=== PATIENT | female | born 1930 | race Caucasian/White ===

== ENCOUNTER 2016-05-04 18:49 | Inpatient (IN) | payer MEDICARE, BC ==
[~2016-05-04 18:49] MED LIST: ALENDRONATE SOD70 M2 PO; AMBIEN10 M1 PO; AMBIEN10 MG; ASPIRIN81 M1 PO; AZELASTINE205.5 MCG/; BIOTIN800 MCG; CALCARB 600 W-V1 TAB; CALCIUM 600 +1 EA10 PO; CARBIDOPA/LEVO1 TAB; CENTRUM SILVER1 EAC3 PO; CENTRUM SILVER1 TA; COSOPT EYE DROP10 ML OP; COSOPT EYE DROPS5 ML; DIAZEPAM5 M; DIOVAN160 M1 PO; DORZOLAMIDE; EXTRA STRENGTH500 MG; FOLIC ACID0.4 MG; FOSAMAX70 MG; LEVOTHROID25 MCG; LEVOTHYROXINE25 MC3 PO; MAG 6464 MG; MAGNESIUM250 M3 PO; MAXZIDE 75/50 T1 TAB; MELATONIN3 M4 PO; MUPIROCIN22 G2 TP; NORVASC10 MG; SALINE NASAL SP30 M1; TIMOLOL; TRAMADOL HCL50 M2 PO; TRAMADOL HCL50 MG; TRAVATAN Z5 M1 BOTH EYES; TRAVATAN5 ML; TRIAMTERENE-HC1 EAC1 PO; TYLENOL EXTRA500 M1 PO; VALIUM5 M1 PO; VALIUM5 MG; VITAMIN D31000 UNI4 PO; XALATAN2.5 M1 OP; [UNRECOGNIZED DRUG - OTHER]
[2016-05-04 19:46] LABS: URINE BILIRUBIN NEGATIVE (NEG); URINE BLOOD NEGATIVE (NEG); URINE GLUCOSE (UA) NEGATIVE (NEG); URINE KETONE NEGATIVE (NEG); URINE LEUKOCYTE ESTERASE NEGATIVE (NEG); URINE NITRITE NEGATIVE (NEG); URINE PROTEIN MODERATE (NEG)
[2016-05-04 19:49] LABS: URINE APPEARANCE SL CLOUDY; URINE COLOR YELLOW
[2016-05-04] MEDS ORDERED: CERTAVITE SR-A1 EACH PO (19:56)
[2016-05-04 19:57] LABS: URINE RBC 0 /[HPF] (0-5); URINE WBC 0-2 /[HPF] (0-5)
[2016-05-04] MEDS ORDERED: DOK100 M2 PO (19:57)
[2016-05-04 19:58] LABS: URINE EPITHELIAL CELLS 0-5 /[HPF] (0-10)
[2016-05-04] MEDS ORDERED: DULOXETINE HCL30 M1 PO (19:58)
[2016-05-04] MEDS ORDERED: FAMOTIDINE40 M3 PO (19:58)
[2016-05-04] MEDS ORDERED: VALIUM5 M1 PO (20:00)
[2016-05-04 20:53] LABS: BASO % 0.2 % (0-2); EOS % 0.3 % (0-7); HCT-HEMATOCRIT 37.9 % (34.0-49.0); IMMATURE GRANULOCYTES ABSOLUTE 0.03 tho/cmm (0-0.03); IMMATURE GRANULOCYTES PERCENT 0.3 % (0-0.3); LYMPH % 20.4 % (20-45); LYMPH ABSOLUTE COUNT 1.9 tho/cmm (0.8-4.5); MCH (MEAN CORPUSCULAR HGB) 30.7 pg (28.0-32.0); MCHC MEAN CORPUSCULAR HGB CONC 31.7 % (32.0-36.0); MCV (MEAN CELL VOLUME) 96.9 fl (82.0-96.0); MEAN PLATELET VOLUME 10.9 cmc (9.4-12.4); MONO % 12.3 % (0-12); MONOCYTE ABSOLUTE COUNT 1.1 tho/cmm (0.0-1.2); NEUTROPHIL ABSOLUTE COUNT 6.1 tho/cmm (1.6-8.0); NEUTROPHIL-AUTOMATED 6.1 tho/cmm (1.6-8.0); NEUTROPHILS % 66.5 % (40-80); PLATELET COUNT 289 tho/cmm (150-450); RED BLOOD COUNT 3.91 mil/cmm (4.00-5.20); RED CELL DISTRIBUTION WIDTH 12.9 % (12.4-16.4); WHITE BLOOD COUNT 9.1 tho/cmm (4.0-10.0)
[2016-05-04 21:11] LABS: ALB/GLOB RATIO 0.7 (0.8-2.0); ALBUMIN 3.3 g/dl (3.5-5.0); ALKALINE PHOSPHATASE 88 U/L (33-138); ALT/SGPT 21 U/L (12-78); BILIRUBIN,TOTAL 0.3 mg/dl (0-1.5); BLOOD UREA NITROGEN 39 mg/dl (6-24); CALCIUM 12.4 mg/dl (8.5-10.5); CARBON DIOXIDE-VENOUS 32 mmol/L (22-32); CHLORIDE 100 mmol/l (96-110); GLUCOSE 133 mg/dL (70-110); SODIUM 139 mmol/L (135-145); eGFR VALUE FOR BLACK 16 mL/Min
[2016-05-04 21:12] LABS: ANION GAP 11 mmol/L (0-20); AST/SGOT 34 U/L (10-40); MAGNESIUM 2.5 mg/dl (1.3-2.6); POTASSIUM 4.2 mmol/L (3.7-5.1)
[2016-05-05 05:02] LABS: BASO % 0.3 % (0-2); EOS % 2.5 % (0-7); EOSINOPHIL ABSOLUTE COUNT 0.2 tho/cmm (0.0-0.7); HCT-HEMATOCRIT 32.6 % (34.0-49.0); HGB-HEMOGLOBIN 10.1 gm/dl (12.0-15.5); IMMATURE GRANULOCYTES ABSOLUTE 0.01 tho/cmm (0-0.03); IMMATURE GRANULOCYTES PERCENT 0.1 % (0-0.3); LYMPH % 27.7 % (20-45); MCH (MEAN CORPUSCULAR HGB) 30.2 pg (28.0-32.0); MCV (MEAN CELL VOLUME) 97.6 fl (82.0-96.0); MEAN PLATELET VOLUME 10.7 cmc (9.4-12.4); MONO % 13.4 % (0-12); PLATELET COUNT 280 tho/cmm (150-450); RED BLOOD COUNT 3.34 mil/cmm (4.00-5.20); RED CELL DISTRIBUTION WIDTH 12.9 % (12.4-16.4); WHITE BLOOD COUNT 7.2 tho/cmm (4.0-10.0)
[2016-05-05 05:13] LABS: ANION GAP 9 mmol/L (0-20); BLOOD UREA NITROGEN 35 mg/dl (6-24); CALCIUM 10.7 mg/dl (8.5-10.5); CARBON DIOXIDE-VENOUS 30 mmol/L (22-32); CHLORIDE 104 mmol/l (96-110); CREATININE 2.65 mg/dl (0.50-1.10); GLUCOSE 102 mg/dL (70-110); MAGNESIUM 2.3 mg/dl (1.3-2.6); POTASSIUM 3.4 mmol/L (3.7-5.1); SODIUM 140 mmol/L (135-145); eGFR VALUE FOR BLACK 18 mL/Min
[2016-05-06 04:32] LABS: HGB-HEMOGLOBIN 10.1 gm/dl (12.0-15.5); PLATELET COUNT 274 tho/cmm (150-450)
[2016-05-06 04:53] LABS: ANION GAP 8 mmol/L (0-20); BLOOD UREA NITROGEN 35 mg/dl (6-24); CALCIUM 9.3 mg/dl (8.5-10.5); CARBON DIOXIDE-VENOUS 31 mmol/L (22-32); CHLORIDE 106 mmol/l (96-110); CREATININE 2.21 mg/dl (0.50-1.10); GLUCOSE 93 mg/dL (70-110); SODIUM 142 mmol/L (135-145); eGFR VALUE FOR BLACK 22 mL/Min
[2016-05-07 04:49] LABS: ANION GAP 10 mmol/L (0-20); BLOOD UREA NITROGEN 29 mg/dl (6-24); CALCIUM 8.8 mg/dl (8.5-10.5); CARBON DIOXIDE-VENOUS 30 mmol/L (22-32); CHLORIDE 107 mmol/l (96-110); CREATININE 1.82 mg/dl (0.50-1.10); GLUCOSE 99 mg/dL (70-110); POTASSIUM 3.6 mmol/L (3.7-5.1); SODIUM 143 mmol/L (135-145); eGFR VALUE FOR BLACK 28 mL/Min
[2016-05-07] MEDS ORDERED: FLUOROURACIL TP (13:55)
[2016-05-07] MEDS ORDERED: VALIUM5 M1 PO (14:01)
== END 2016-05-07 17:15 | DRG 682 ==
LOC: EDMED 18:49 → EMR2 22:21 → 5WF 23:24
PROVIDERS: Emergency Medicine; Internal Medicine; ADMIT Hospitalist
PROC: 05HB33Z Insertion of Infusion Device into Right Basilic Vein, Percutaneous Approach (ICD-10-PCS; principal; 2016-05-05)
DX: N17.9 Acute kidney failure, unspecified (principal); G93.49 Other encephalopathy; E03.9 Hypothyroidism, unspecified; E83.52 Hypercalcemia; I10 Essential (primary) hypertension; M19.90 Unspecified osteoarthritis, unspecified site; M81.0 Age-related osteoporosis without current pathological fracture; F03.90 Unspecified dementia, unspecified severity, without behavioral disturbance, psychotic disturbance, mood disturbance, and anxiety; J47.9 Bronchiectasis, uncomplicated; Z96.652 Presence of left artificial knee joint; Z98.49 Cataract extraction status, unspecified eye; R33.9 Retention of urine, unspecified; H40.9 Unspecified glaucoma; S32.029D Unspecified fracture of second lumbar vertebra, subsequent encounter for fracture with routine healing; W19.XXXD Unspecified fall, subsequent encounter; Z91.81 History of falling; Z79.82 Long term (current) use of aspirin
CPT/HCPCS: C1751; G8987-GO-CK; G8988-GO-CJ; J1650; J1940; J7030; P9612